=== PATIENT | female | born 1970 | race Caucasian/White ===

== ENCOUNTER 2018-04-15 13:30 | Emergency (ER) | payer SELFPAY ==
--- NOTE | 2018-04-15 14:15 | NUR ---
CALLED AT THE LOBBY NO ANSWER [facility]
== END 2018-04-15 14:15 | disposition left against medical advice (07) ==
LOC: MED 13:30
DX: R53.81 Other malaise (principal); Z53.21 Procedure and treatment not carried out due to patient leaving prior to being seen by health care provider